=== PATIENT | female | born 2000 | race Caucasian/White ===

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

== ENCOUNTER 2020-05-29 14:04 | Emergency (ER) | payer OTHER ==
[~2020-05-29 14:04] MED LIST: CARAFATE1 G1 PO; FLEXERIL10 MG PO; IBUPROFEN800 MG PO; MACROBID100 MG PO; PHENERGAN25 M1 PO; PRILOSEC20 MG PO
[2020-05-29 14:59] LABS: BILIRUBIN NEGATIVE (NEGATIVE); BLOOD NEGATIVE Ery/uL (NEGATIVE); CLARITY HAZY (CLEAR); COLOR YELLOW (YELLOW); GLUCOSE (U) NORMAL (NORMAL); LEUKOCYTES NEGATIVE Leu/uL (NEGATIVE); NITRITE NEGATIVE (NEGATIVE); PROTEIN NEGATIVE (NEGATIVE); SPECIFIC GRAVITY >=1.030 (1.001-1.030); UROBILINOGEN 0.2 mg/dL (0.2-1.0)
[2020-05-30 22:10] LABS: CHLAMYDIA TRACHOMATIS, NAA Negative (Negative); NEISSERIA GONORRHOEAE, NAA Negative (Negative)
== END 2020-05-29 15:14 | disposition home or self-care (01) ==
LOC: FER 14:04
PROVIDERS: Emergency Medicine
DX: J06.9 Acute upper respiratory infection, unspecified (principal); R10.9 Unspecified abdominal pain; Z20.2 Contact with and (suspected) exposure to infections with a predominantly sexual mode of transmission
CPT/HCPCS: 81003; 87491; 87591; 99284; J0696

== ENCOUNTER 2020-07-26 21:47 | Emergency (ER) | payer OTHER ==
[2020-07-27 00:10] LABS: BASOPHIL 0.8 % (0-2); EOSINOPHIL 1.1 % (0-5); HCT 33.9 % (37.0-47.0); HGB 11.8 g/dl (12.5-16.0); LYMPHOCYTE 31.8 % (15-48); MCH 29.6 pg (25.0-31.0); MCHC 34.8 g/dL (32.0-36.0); MCV 85.2 fL (78.0-100.0); MONOCYTE 5.7 % (0-12); MPV 9.6 fL (6.0-9.5); NEUTROPHIL 60.3 % (41-80); NRBC 0; PLT 188 K/uL (150-400); RBC 3.98 M/uL (4.20-5.40); RDW 12.9 % (11.5-14.0); WBC 6.7 K/uL (4.0-10.5)
[2020-07-27 00:38] LABS: CREATININE 0.7 mg/dL (0.51-0.95)
[2020-07-27 00:39] LABS: BILIRUBIN - TOTAL 0.3 mg/dL (0.2-1.0)
== END 2020-07-27 01:52 | disposition home or self-care (01) ==
LOC: FER 21:47
PROVIDERS: Emergency Medicine
DX: O99.891 Other specified diseases and conditions complicating pregnancy (principal); R10.2 Pelvic and perineal pain; Z3A.14 14 weeks gestation of pregnancy
CPT/HCPCS: 36415; 76830; 80053; 85025; 86850; 86900; 86901; J1885; J7030

== ENCOUNTER 2020-08-07 14:10 | Emergency (ER) | payer OTHER | END 2020-08-07 17:05 | disposition home or self-care (01) | LOC: FER 14:10 | DX: S20.462A Insect bite (nonvenomous) of left back wall of thorax, initial encounter (principal); S20.461A Insect bite (nonvenomous) of right back wall of thorax, initial encounter; S30.860A Insect bite (nonvenomous) of lower back and pelvis, initial encounter; W57.XXXA Bitten or stung by nonvenomous insect and other nonvenomous arthropods, initial encounter; Z88.8 Allergy status to other drugs, medicaments and biological substances | CPT/HCPCS: 99282 ==

== ENCOUNTER 2020-09-01 16:00 | Emergency (ER) | payer OTHER ==
[2020-09-01] MEDS ORDERED: AUGMENTIN 875-1 EACH PO (17:06)
== END 2020-09-01 17:14 | disposition home or self-care (01) ==
LOC: FER 16:00
DX: O99.512 Diseases of the respiratory system complicating pregnancy, second trimester (principal); J01.90 Acute sinusitis, unspecified
CPT/HCPCS: 99283

== ENCOUNTER 2020-09-16 21:34 | Day surgery (SDCO) | payer OTHER ==
[~2020-09-16] VITALS: Ht 152.4 cm; Wt 62.6 kg
[~2020-09-16 21:34] MED LIST changes: +AUGMENTIN 875-1 EACH PO
[2020-09-16 22:58] LABS: BASOPHIL 0.5 % (0-2); EOSINOPHIL 0.6 % (0-5); HCT 31.1 % (37.0-47.0); HGB 10.4 g/dl (12.5-16.0); MCH 29.1 pg (25.0-31.0); MCHC 33.4 g/dL (32.0-36.0); MCV 87.1 fL (78.0-100.0); MONOCYTE 5.7 % (0-12); MPV 8.7 fL (6.0-9.5); NEUTROPHIL 64.9 % (41-80); NRBC 0; PLT 171 K/uL (150-400); RBC 3.57 M/uL (4.20-5.40); RDW 14.1 % (11.5-14.0); WBC 6.5 K/uL (4.0-10.5)
== END 2020-09-17 12:55 | disposition home or self-care (01) ==
LOC: FOB 21:34 → FOD 21:34 → FOB 22:20
PROVIDERS: ADMIT Obstetrics & Gynecology
DX: O47.02 False labor before 37 completed weeks of gestation, second trimester (principal); Z3A.22 22 weeks gestation of pregnancy
CPT/HCPCS: 36415; 76817; 80305; 81001; 85025; 87088; G0378; J7120

== ENCOUNTER 2020-12-02 18:16 | Emergency (ER) | payer OTHER | END 2020-12-02 19:35 | disposition home or self-care (01) | LOC: FER 18:16 | DX: S63.653A Sprain of metacarpophalangeal joint of left middle finger, initial encounter (principal); S63.655A Sprain of metacarpophalangeal joint of left ring finger, initial encounter; S63.657A Sprain of metacarpophalangeal joint of left little finger, initial encounter; S60.222A Contusion of left hand, initial encounter; W23.1XXA Caught, crushed, jammed, or pinched between stationary objects, initial encounter; Y92.009 Unspecified place in unspecified non-institutional (private) residence as the place of occurrence of the external cause | CPT/HCPCS: 73130 ==

== ENCOUNTER 2021-07-02 14:57 | Emergency (ER) | payer OTHER ==
[2021-07-02] MEDS ORDERED: MOTRIN600 MG PO (18:23)
== END 2021-07-02 19:05 | disposition home or self-care (01) ==
LOC: FER 14:57
DX: S00.83XA Contusion of other part of head, initial encounter (principal); S00.12XA Contusion of left eyelid and periocular area, initial encounter; S00.11XA Contusion of right eyelid and periocular area, initial encounter; S20.211A Contusion of right front wall of thorax, initial encounter; S40.022A Contusion of left upper arm, initial encounter; S60.222A Contusion of left hand, initial encounter; S00.412A Abrasion of left ear, initial encounter; F17.290 Nicotine dependence, other tobacco product, uncomplicated; Y04.0XXA Assault by unarmed brawl or fight, initial encounter
CPT/HCPCS: 70450; 70486; 71101

== ENCOUNTER 2021-11-12 20:54 | Emergency (ER) | payer OTHER ==
[~2021-11-12 20:54] MED LIST changes: +MOTRIN600 MG PO
[2021-11-12 21:52] LABS: BASOPHIL 1.1 % (0-2); EOSINOPHIL 1.9 % (0-5); HCT 37.1 % (37.0-47.0); HGB 12.4 g/dl (12.5-16.0); LYMPHOCYTE 39.7 % (15-48); MCH 28.5 pg (25.0-31.0); MCHC 33.4 g/dL (32.0-36.0); MCV 85.3 fL (78.0-100.0); MONOCYTE 8.8 % (0-12); MPV 9.2 fL (6.0-9.5); NEUTROPHIL 48.2 % (41-80); NRBC 0; PLT 211 K/uL (150-400); RBC 4.35 M/uL (4.20-5.40); RDW 12.2 % (11.5-14.0); WBC 3.7 K/uL (4.0-10.5)
[2021-11-12 21:55] LABS: BILIRUBIN NEGATIVE (NEGATIVE); BLOOD NEGATIVE Ery/uL (NEGATIVE); CLARITY CLEAR (CLEAR); COLOR YELLOW (YELLOW); GLUCOSE (U) NORMAL (NORMAL); LEUKOCYTES NEGATIVE Leu/uL (NEGATIVE); NITRITE NEGATIVE (NEGATIVE); PROTEIN NEGATIVE (NEGATIVE); SPECIFIC GRAVITY >=1.030 (1.001-1.030); UROBILINOGEN 0.2 mg/dL (0.2-1.0)
[2021-11-12 21:58] LABS: ALBUMIN 3.5 g/dL (3.4-5.0); BILIRUBIN - TOTAL 0.7 mg/dL (0.2-1.0); BUN/CREAT RATIO (CALC) 19.2 RATIO; CREATININE 0.78 mg/dL (0.51-0.95); POTASSIUM 3.9 mmol/L (3.5-5.1); TOTAL PROTEIN 7.5 g/dL (6.4-8.2)
[2021-11-12 21:58] LABS: MARIJUANA (THC) NEGATIVE (NEGATIVE)
[2021-11-12 21:59] LABS: AMPHETAMINES NEGATIVE (NEGATIVE); BARBITURATES NEGATIVE (NEGATIVE); ECSTASY (MDMA) NEGATIVE (NEGATIVE); METHADONE NEGATIVE (NEGATIVE); OPIATES NEGATIVE (NEGATIVE); OXYCODONE NEGATIVE (NEGATIVE)
[2021-11-12] MEDS ORDERED: BENTYL10 MG PO (22:44)
== END 2021-11-12 23:44 | disposition home or self-care (01) ==
LOC: FER 20:54
PROVIDERS: Nurse Practitioner Family
DX: R10.32 Left lower quadrant pain (principal); R11.2 Nausea with vomiting, unspecified; B27.90 Infectious mononucleosis, unspecified without complication; Z88.8 Allergy status to other drugs, medicaments and biological substances
CPT/HCPCS: 36415; 80053; 80305; 81003; 82150; 83690; 85025; 93005; J1885; J7030; Q9967